=== PATIENT | female | born 1960 | race Caucasian/White ===

== ENCOUNTER 2018-09-12 12:24 | Emergency (ER) | payer OTHER ==
[~2018-09-12] VITALS: Ht 172.7 cm; Wt 93.2 kg
[~2018-09-12 12:24] MED LIST: IBUP-1542 PO
[2018-09-12 12:46] VITALS: Ht 172.7 cm; Wt 93.2 kg
--- NOTE | 2018-09-12 13:25 | ERD ---
ER Documentation Chief Complaint Chief Complaint back , foot pain due to fall HPI 57-year-old female presents with left-sided back pain after falling off of her sofa 2 days ago. States that she was standing on her self adjusting her drapes when she fell. She denies hitting her head or any current headache, focal w eakness, numbness, tingling. In addition patient states that her left ankle hurts. She denies any neck pain, dyspnea, shortness of breath, cough, hemoptysis. States that she drove here. Denies any medical problems. Denies any allergies. ROS All systems reviewed and are negative except as per history of present illness. Medications Home Meds Active Scripts Ibuprofen* (Motrin*) 600 Mg Tab, 600 MG PO Q6, #30 TAB Prov:SUZE MONSON 09/12/18 Allergies Allergies: Coded Allergies: morphine (Verified Allergy, Intermediate, 09/12/18) PMhx/Soc History of Surgery: Yes (hystorectomy, nose) Anesthesia Reaction: No Hx Neurological Disorder: No Hx Respiratory Disorders: No Hx Cardiac Disorders: No Hx Psychiatric Problems: No Hx Miscellaneous Medical Probl: No Hx Alcohol Use: Yes Hx Substance Use: No Hx Tobacco Use: No Smoking Status: Never smoker FmHx Family History: No diabetes, No coronary disease, No other Physical Exam Vitals Vital Signs Date Temp Pulse Resp B/P (MAP) Pulse Ox O2 O2 Flow FiO2 Time Delivery Rate 09/12/18 99.1 92 20 161/100 97 12:46 (120) Physical Exam Const: No acute distress Head: Atraumatic Eyes: Normal Conjunctiva ENT: Normal External Ears, Nose and Mouth. Neck: Full range of motion. No meningismus. Resp: Clear to auscultation bilaterally Cardio: Regular rate and rhythm, no murmurs Abd: Soft, non tender, non distended. Normal bowel sounds Skin: No petechiae or rashes Back: Tenderness to palpation over the left posterior chest wall without any obvious deformity, edema, erythema, or ecchymosis. Ext: No cyanosis, or edema Neur: Awake and alert Psych: Normal Mood and Affect Lower Extremity - bilateral: Skin: No laceration Compartments: Soft Motor: Full active range of motion hip/knee/ankle/foot Sensation: Intact to light touch FDWS/MF/LF/P surfaces. Bones: Nontender pelvis/knee/proximal tibia/ malleoli/foot Joints: No effusion or laxity Pulses/Perfusion: 2+ DP, Capillary refill < 2 seconds Results 24 hrs Laboratory Tests Test 09/12/18 13:30 Urine Color YELLOW Urine Clarity CLEAR Urine pH 5.0 Urine Specific [place] 1.023 Urine Ketones NEGATIVE mg/dL Urine Nitrite NEGATIVE mg/dL Urine Bilirubin NEGATIVE mg/dL Urine Urobilinogen NEGATIVE mg/dL Urine Leukocyte Esterase NEGATIVE Aneudy/ul Urine Microscopic RBC 5 /HPF Urine Microscopic WBC 1 /HPF Urine Mucus FEW /HPF Urine Hemoglobin 1+ mg/dL Urine Glucose NEGATIVE mg/dL Urine Total Protein NEGATIVE mg/dl POC Beta HCG, Qualitative NEGATIVE Current Medications Medications Dose Sig/Merlene Start Time Status Last (Trade) Ordered Route PRN Stop Time Admin Dose Reason Admin Ibuprofen 600 mg ONCE ONCE 09/12/18 DC 09/12/18 (Motrin) PO 13:30 13:25 09/12/18 13:31 Sodium 1,000 ml @ Q1H STAT 09/12/18 DC 09/12/18 Chloride 1,000 mls/hr IV 14:32 14:52 09/12/18 15:31 IV Flush 10 ml STK-MED 09/12/18 DC (NS 10 ml) ONCE .ROUTE 15:38 09/12/18 15:39 Sodium 100 ml @ ud STK-MED 09/12/18 DC Chloride ONCE .ROUTE 15:38 09/12/18 15:39 Iohexol 150 ml STK-MED 09/12/18 DC (Omnipaque ONCE .ROUTE 15:38 300mg/ ml) 09/12/18 15:39 Procedures/MDM DIAGNOSTIC IMAGING REPORT Patient: SCOT CHU : 1960 Age: 57 Sex: F MR #: [id number] DOS: 09/12/18 1432 Ordering MD: SUZE MONSON Location: [facility] Room/Bed: PROCEDURE: CT Abdomen and Pelvis with contrast. CLINICAL INDICATION: Abdominal pain with hematuria TECHNIQUE: CT scan of the abdomen and pelvis with contrast was performed on a multi-detector high-resolution CT scanner. The patient was scanned following the uncomplicated intravenous administration of 100 cc of Omnipaque 300 IV contrast. Coronal and sagittal reformatted images were obtained from the axial source images. DICOM images are available. CTDI equals 21.95 mGy, and DLP equals 1343.27 mGy-cm. One or more of the following dose reduction techniques were used: - Automated exposure control. - Adjustment of the mA and/or kV according to patient size. - Use of iterative reconstruction technique. COMPARISON: None. FINDINGS: Lower thorax: Normal. Liver: Benign liver cysts. No suspicious solid liver lesion. Patent portal vein. Biliary: Normal gallbladder. No biliary dilatation. Pancreas: Normal. Spleen: Tiny subcentimeter hypodense splenic lesions, nonspecific likely benign lesion such as cyst or hemangioma. Spleen is borderline enlarged and measures 13.5 cm. Adrenal Glands: Normal. Genitourinary: Symmetric perfusion of kidneys with no hydronephrosis. No definitive nephrolithiasis. Bladder is mildly distended and unremarkable. Gastrointestinal: Stomach is relatively decompressed. Small and large bowel with normal caliber. Normal appendix. Scattered colonic diverticulosis. Lymph nodes: Normal. Vascular: Normal. Peritoneum/mesentery: No free fluid or free air. Reproductive organs: Unremarkable. Musculoskeletal: Mild degenerative changes of the spine. Abdominal wall: Normal IMPRESSION: 1. No mass, adenopathy, or acute inflammatory process. 2. No urolithiasis or obstructive uropathy. 3. Borderline splenomegaly measuring 13.5 cm 4. Scattered colonic diverticulosis per RPTAT: BBDD Physician Gilma Date Time Electronically viewed and signed by Physician Gilma on 09/12/2018 16:22 rV/ CC: SUZE MONSON [id number] MDM: Numerous x-rays were performed and all results within normal limits. There is some blood seen in the patient's UA and patient denies being on her. So case was discussed with supervising physician Dr. Gordon. He stated that CT with con trast would be appropriate. CT results within normal limits aside from splenomegaly which is an incidental finding. Discussed findings with the patient and told her she need to follow-up with her primary care provider. Patient was placed in bilateral Frank wraps for possible ankle sprains and given crutches. Patient was able to use crutches at discharge without difficulty. Patient agreed to follow-up with her primary care. At this time I have low suspicion of organ injury, internal bleed, fracture, osteomyelitis, compartment syndrome, dislocation, or any emergent condition. At this time, patient is stable for discharge and outpatient management. I have instructed the patient to follow-up with his/her primary care physician in 1-2 days. I have discussed with the patient the possibility of needing to see a specialist for further workup and imaging studies if symptoms persist. I have instructed the patient to promptly return to the ER for any new or worsening symptoms including but not limited to increased pain, fever, nausea, vomiting, weakness or LOC. The patient and/or family expressed understanding of and agreement with this plan. All questions were answered. Home care instructions were provided. DISCLAIMER: Inadvertent spelling and grammatical errors are likely due to EHR/dictation software use and do not reflect on the overall quality of patient care. Also, please note that the electronic time recorded on this note does not necessarily reflect the actual time of the patient encounter. Departure Diagnosis: Primary Impression: Fall with no significant injury Additional Impressions: Rib contusion Splenomegaly Ankle sprain Condition: Stable SUZE MONSON Sep 12, 2018 13:25
[2018-09-12] MEDS ORDERED: IBUPROFEN 600 MG TAB PO ONE (13:30)
[2018-09-12] MEDS ORDERED: SOD CHLORIDE 0.9% 1,000 ML IV STA (14:32)
[2018-09-12] MEDS ORDERED: IOHEXOL 300MG/ML 150 ML BTL ONE (15:38)
[2018-09-12] MEDS ORDERED: SOD CHLORIDE 0.9% 100 ML ONE (15:38)
[2018-09-12 17:18] VITALS: BP 169/85; PULSE 74; RESP 16
== END 2018-09-12 17:20 | disposition home or self-care (01) ==
LOC: FTE 12:24
DX: S20.212A Contusion of left front wall of thorax, initial encounter (principal); S93.402A Sprain of unspecified ligament of left ankle, initial encounter; R16.1 Splenomegaly, not elsewhere classified; W08.XXXA Fall from other furniture, initial encounter; Y92.9 Unspecified place or not applicable
CPT/HCPCS: 71045; 71100; 72072; 72100; 73610; 73630; 74177; 81001; 81025; 96360; 99285; J7030; Q9967